=== PATIENT | male | born 2000 | race Caucasian/White ===

== ENCOUNTER 2019-04-10 16:19 | Emergency (ER) | payer OTHER ==
[~2019-04-10] VITALS: Ht 180.3 cm; Wt 80.0 kg
[~2019-04-10 16:19] MED LIST: NO HOME MEDS
[2019-04-10 16:20] VITALS: BP 160/86
== END 2019-04-10 19:33 | disposition left against medical advice (07) ==
LOC: ER 16:19
DX: R07.89 Other chest pain (principal); Z53.21 Procedure and treatment not carried out due to patient leaving prior to being seen by health care provider